=== PATIENT | male | born 2000 | race Caucasian/White ===

== ENCOUNTER 2022-11-15 13:06 | Outpatient (REF) | payer BC, SELFPAY ==
[2022-11-16 13:42] LABS: COVID-19 RT-PCR UVMMC Result Negative (Negative)
== END 2022-11-15 13:07 | disposition home or self-care (01) ==
LOC: LBN 13:06
PROVIDERS: PCP Nurse Practitioner Family; Visit Provider Physician Assistant Medical
DX: J02.9 Acute pharyngitis, unspecified (principal); Z20.822 Contact with and (suspected) exposure to COVID-19
CPT/HCPCS: U0003; 87070

== ENCOUNTER 2022-12-27 15:10 | Outpatient (REF) | payer BC, SELFPAY | END 2022-12-27 15:11 | disposition home or self-care (01) | LOC: LBN 15:10 | PROVIDERS: PCP Nurse Practitioner Family; Visit Provider Physician Assistant Medical | DX: J02.9 Acute pharyngitis, unspecified (principal) | CPT/HCPCS: 87070 ==

== ENCOUNTER 2023-06-15 22:51 | Outpatient (REF) | payer BC, SELFPAY ==
[2023-06-15 20:29] LABS: HCT 46.9 % (40.0-50.0); HGB 16.4 g/dL (13.5-17.5); MCH 29.5 pg (27.0-33.0); MCV 85 fL (80-95); MPV 11.8 fL (8.0-11.0); Platelet Count 269 10^3/uL (130-400); RBC 5.55 10^6/uL (4.36-5.78); RDW 13.1 % (11.8-14.1); RDW-SD 40.5 fL; WBC 8.17 10^3/uL (4.4-10.8)
[2023-06-15 20:49] LABS: ALT 133 U/L (16-63); AST 53 U/L (15-37); Albumin 4.2 g/dL (3.4-5.0); Alkaline Phosphatase 107 U/L (46-116); Anion Gap 10.9 mmol/L (3-11); BUN 7 mg/dL (7-18); Bilirubin, Total 0.8 mg/dL (0.2-1.0); CO2 24.1 mmol/L (21.0-32.0); CREATININE 0.8 mg/dL (0.70-1.30); Calcium 9.2 mg/dL (8.5-10.1); Chloride 106 mmol/L (98-107); Estimated GFR 127.53 (mL/min/1.73m2); Glucose 148 mg/dL (74-106); Magnesium 2.2 mg/dL (1.8-2.4); Potassium 3.6 mmol/L (3.5-5.1); Sodium 141 mmol/L (136-145); TSH (W/Ref FT4) 0.94 uIU/mL (0.36-3.74); Total Protein 7.4 g/dL (6.4-8.2)
[2023-06-15 21:14] LABS: Iron 88 ug/dL (65-175); Total Iron Binding Capacity 301 ug/dL (250-450); Transferrin Sat 29 % (20-55)
== END 2023-06-15 22:52 | disposition home or self-care (01) ==
LOC: NCHCN 22:51
PROVIDERS: PCP Nurse Practitioner Family; Visit Provider Nurse Practitioner Family
DX: R53.83 Other fatigue (principal); J34.89 Other specified disorders of nose and nasal sinuses; J30.9 Allergic rhinitis, unspecified; R05.8 Other specified cough; R51.9 Headache, unspecified
CPT/HCPCS: 80053; 85027; 83540; 83550; 83735; 84443